=== PATIENT | female | born 1955 | race Two or more races ===

== ENCOUNTER 2018-09-08 13:03 | Inpatient (IN) | payer OTHER ==
[2018-09-08 15:59] VITALS: BMI 28.0
--- NOTE | 2018-09-08 16:43 | HP ---
COWS - Scale Resting Pulse: 1= [place] 81-100 Sweatin= Chills/Flushing Restless Observation: 1= Difficult to Sit Still Pupil Size: 1= Pupils >than Normal Bone or Joint Aches: 2= Severe Diffuse Aches Runny Nose/ Eye Tearin= Constantly Teary/Runny GI Upset > 30mins: 1= Stomach Cramp Tremor Observation: 0= None Yawning Observation: 0= None Anxiety or Irritability: 2=Irritable/Anxious Goose Flesh Skin: 0=Smooth Skin COWS Score: 13 CIWA Score Nausea/Vomitin-No Nausea/No Vomiting Muscle Tremors: 2 Anxiety: 2 Agitation: 0-Normal Activity Paroxysmal Sweats: 2 Orientation: 0-Oriented Tacttile Disturbances: 2-Mild Itch/Numbness/Burn Auditory Disturbances: 0-None Visual Disturbances: 1-Very Mild Sensitivity Headache: 3-Moderate CIWA-Ar Total Score: 12 - Admission Criteria OAS Guidelines: Admission for Medically Managed Detox: Requires at least one of the followin. CIWA greater than 12 2. Seizures within the past 24 hours 3. Delirium tremens within the past 24 hours 4. Hallucinations within the past 24 hours 5. Acute intervention needed for co occurring medical disorder 6. Acute intervention needed for co occurring psychiatric disorder 7. Severe withdrawal that cannot be handled at a lower level of care (continued vomiting, continued diarrhea, abnormal vital signs) requiring intravenous medication and/or fluids 8. Patient presents the following: CIWA greater than 12 Admission Criteria Met: Admission criteria met Admission ROS [facility] Chief Complaint: " I want to live and go back to [place]" alcohol and heroin withdrawal symptoms Allergies/Adverse Reactions: Allergies Allergy/AdvReac Type Severity Reaction Status Date / Time chlordiazepoxide HCl Allergy Severe Vomiting Verified 09/08/18 15:48 [From Librium] Latex, Natural Rubber Allergy Intermediate Itching Verified 09/08/18 15:48 History of Present Illness: 63 yo female with hx of heroin and alcohol dependence is here seeking inpatient detox. Records five years of sobriety relapsed in the past six months. PMHX: HTN, Hypothyroid Psych: denies Denies SI/ HI denies hx of suicide attempt Denies hx of seizures, blackouts or overdose Exam Limitations: No Limitations - Ebola screening Have you traveled outside of the country in the last 21 days: No Have you had contact with anyone from an Ebola affected area: No - Review of Systems Constitutional: Chills, Loss of Appetite, Changes in sleep, Unintentional Wgt. Loss (20 lbs in past six months) EENT: reports: Nose Congestion Respiratory: reports: No Symptoms reported Cardiac: reports: Palpitations GI: reports: Constipated (last bm today) : reports: No Symptoms Reported Musculoskeletal: reports: Back Pain, Joint Pain Integumentary: reports: No Symptoms Reported Neuro: reports: Numbness, Weakness Endocrine: reports: Increased Thirst Hematology: reports: No Symptoms Reported Psychiatric: reports: Orientated x3, Anxious Other Systems: Reviewed and Negative Patient History - Patient Medical History Hx Anemia: No Hx Asthma: No Hx Chronic Obstructive Pulmonary Disease (COPD): No Hx Cancer: No Hx Cardiac Disorders: No Hx Congestive Heart Failure: No Hx Hypertension: Yes (on med) Hx Hypercholesterolemia: No Hx Pacemaker: No HX Cerebrovascular Accident: No Hx Seizures: No Hx Dementia: No Hx Diabetes: No Hx Gastrointestinal Disorders: Yes (GERD) Hx Liver Disease: No Hx Genitourinary Disorders: No Hx Sexually Transmitted Disorders: No Hx Renal Disease (ESRD): No Hx Thyroid Disease: Yes (hypothyroidism) Hx Human Immunodeficiency Virus (HIV): No (05/02 LAST TESTED) Hx Hepatitis C: Yes Hx Depression: Yes (abilify) Hx Suicide Attempt: No Hx Bipolar Disorder: No Hx Schizophrenia: No - Patient Surgical History Past Surgical History: No Hx Neurologic Surgery: No Hx Cataract Extraction: No Hx Cardiac Surgery: No Hx Lung Surgery: No Hx Breast Surgery: No Hx Breast Biopsy: No Hx Abdominal Surgery: No Hx Appendectomy: No Hx Cholecystectomy: No Hx Genitourinary Surgery: No Hx Section: No Hx Orthopedic Surgery: No Anesthesia Reaction: No - PPD History Previous Implant?: No Date: 07/29/13 Results: 0MM PPD to be Administered?: Yes - Smoking Cessation Smoking history: Current every day smoker Have you smoked in the past 12 months: Yes Aproximately how many cigarettes per day: 20 Cigars Per Day: 0 Hx Chewing Tobacco Use: No Initiated information on smoking cessation: Yes 'Breaking Loose' booklet given: 09/08/18 - Substance & Tx. History Hx Alcohol Use: Yes Hx Substance Use: Yes Substance Use Type: Heroin Hx Substance Use Treatment: Yes - Substances abused Heroin Substance route: Inhalation Frequency: Daily Amount used: 4 bags/day Age of first use: 13 Date of last use: 09/08/18 Family Disease History - Family Disease History Family History: Denies Admission Physical Exam [facility] - Vital Signs Vital Signs: Vital Signs - 24 hr 09/08/18 15:46 Pulse Rate 68 Respiratory 18 Rate Blood Pressure 143/85 - Physical General Appearance: Yes: Appropriately Dressed, Mild Distress, Sweating, Anxious HEENTM: Yes: EOMI, Hearing grossly Normal, Normal ENT Inspection, Normocephalic , Normal Voice, IAN, Pharynx Normal, Tm's normal Respiratory: Yes: Chest Non-Tender, Lungs Clear, Normal Breath Sounds, No Respiratory Distress, No Accessory Muscle Use Neck: Yes: Within Normal Limits Breast: Yes: Breast Exam Deferred Cardiology: Yes: Regular Rhythm, Regular Rate Abdominal: Yes: Normal Bowel Sounds, Non Tender, Flat, Soft Genitourinary: Yes: Within Normal Limits Back: Yes: Normal Inspection Musculoskeletal: Yes: full range of Motion, Gait Steady, Pelvis Stable Extremities: Yes: Normal Capillary Refill, Normal Inspection, Normal Range of Motion, Non-Tender Neurological: Yes: hair preparer II-XII NML intact, Fully Oriented, Alert, Motor Strength 5/5, Normal Response, Depressed Affect Integumentary: Yes: Normal Color, Dry, Warm Lymphatic: Yes: Within Normal Limits - Diagnostic (1) Essential hypertension Current Visit: Yes Status: Acute (2) Gastroesophageal reflux disease Current Visit: Yes Status: Chronic Qualifiers: Esophagitis presence: without esophagitis Qualified Code(s): K21.9 - Gastro -esophageal reflux disease without esophagitis (3) Nicotine dependence Current Visit: Yes Status: Chronic Qualifiers: Nicotine product type: cigarettes Cleared for Admission [facility] - Detox or Rehab [facility] Level of Care: Medically Managed Detox Regimen/Protocol: Methadone Breathalyzer - Breathalyzer Breathalyzer: 0 Urine Drug Screen - Test Device Lot number: [id number] Expiration date: 05/19/20 - Control Is test valid?: Yes - Results Urine drug screen results: FEN-Fentanyl, MOP-Opiates, OXY-Oxycodone, MTD- Methadone Inpatient Rehab Admission - Rehab Decision to Admit Inpatient rehab admission?: No
[2018-09-08] MEDS ORDERED: MAGNESIUM CITRATE 300 ML BOTTLE PO PRN (16:56)
[2018-09-08] MEDS ORDERED: ACETAMINOPHEN 325 MG TABLET (FP) PO PRN ×2 (16:56)
[2018-09-08] MEDS ORDERED: MAGNESIUM HYDROX 2400MG/30ML ORAL SUSPENSION 30 ML CUP PO PRN (16:56)
[2018-09-08] MEDS ORDERED: MELATONIN 5 MG TABLETS PO PRN (16:56)
[2018-09-08] MEDS ORDERED: MAG HYDROX/AL HYDROX/SIMETH 30 ML UNIT-DOSE CUP PO PRN (16:56)
[2018-09-08] MEDS ORDERED: BISMUTH SUBSALICYLATE 524 MG/30 ML UD PO PRN (16:56)
[2018-09-08] MEDS ORDERED: MENTHOL/PHENOL 1 EACH UD MM PRN (16:56)
[2018-09-08] MEDS ORDERED: cloNIDine HCL 0.1 MG TABLET PO PRN (17:11)
[2018-09-08] MEDS ORDERED: METHADONE HCL 10 MG TABLET (FOR DETOX USE ONLY) PO ONE ×2 (18:30→23:00)
[2018-09-08] MEDS: NICOTINE POLACRILEX 2 MG GUM BUC PRN ×2 (19:01→21:00)
[2018-09-08] MEDS: METHOCARBAMOL 500 MG TABLET PO PRN (21:50)
[2018-09-08] MEDS: THIAMINE HCL 100 MG TABLET (FP) PO SCH (21:52)
[2018-09-08] MEDS: MINERAL OIL/PETROLAT/WATER TOPICAL CREAM 113 GM JAR TP SCH (21:57)
[2018-09-09] MEDS: LEVOTHYROXINE NA 25 MCG TABLET (FP) PO SCH (06:35)
[2018-09-09] MEDS ORDERED: METHADONE HCL 10 MG TABLET (FOR DETOX USE ONLY) PO ONE (10:00)
[2018-09-09 10:10] LABS: ALBUMIN 3.4 g/dl (3.4-5.0); BILIRUBIN,TOTAL 0.3 mg/dL (0.2-1); CALCIUM 9.1 mg/dL (8.5-10.1); CREATININE 0.9 mg/dL (0.55-1.3); POTASSIUM 4.1 mmol/L (3.5-5.1); TOT PROT 7.9 g/dl (6.4-8.2)
[2018-09-09 10:21] LABS: HEMATOCRIT 34.9 % (32.4-45.2); HEMOGLOBIN 11.7 GM/dL (10.7-15.3); MCH 33.9 pg (25.7-33.7); MCHC 33.5 g/dl (32.0-36.0); MEAN CELL VOLUME 101.3 fl (80-96); MEAN PLT VOLUME 9.2 fl (7.5-11.1); PLATELET COUNT 194 K/MM3 (134-434); RBC 3.44 M/mm3 (3.60-5.2); RDW 12.7 % (11.6-15.6); WHITE BLOOD COUNT 4.5 K/mm3 (4.0-10.0)
[2018-09-09] MEDS: HYDROCHLOROTHIAZIDE 25 MG TABLET (FP) PO SCH (10:29)
[2018-09-09] MEDS: MINERAL OIL/PETROLAT/WATER TOPICAL CREAM 113 GM JAR TP SCH ×2 (10:30→22:09)
[2018-09-09] MEDS: PRENATAL VITAMINS W/ FOLIC ACID TABLET (FP) PO SCH (10:30)
[2018-09-09] MEDS: NICOTINE 14 MG/24 HOURS TOPICAL PATCH TD SCH (10:32)
[2018-09-09] MEDS: diazePAM 5 MG TABLET PO PRN ×3 (11:23→22:07)
--- NOTE | 2018-09-09 13:24 | EKG ---
Test Reason : Blood Pressure : / mmHG Vent. Rate : 063 BPM Atrial Rate : 063 BPM P-R Int : 166 ms QRS Dur : 078 ms QT Int : 428 ms P-R-T Axes : 076 025 034 degrees QTc Int : 437 ms NORMAL SINUS RHYTHM NORMAL ECG NO PREVIOUS ECGS AVAILABLE Confirmed by NAYELY NICHOLS MD ([id number]) on 09/09/2018 1:24:13 PM Referred By: Confirmed By:NAYELY NICHOLS MD
--- NOTE | 2018-09-09 13:31 | PN ---
[facility] CIWA - CIWA Score Nausea/Vomitin-No Nausea/No Vomiting Muscle Tremors: 3 Anxiety: 3 Agitation: 3 Paroxysmal Sweats: 3 Orientation: 0-Oriented Tacttile Disturbances: 0-None Auditory Disturbances: 0-None Visual Disturbances: 0-None Headache: 0-None Present CIWA-Ar Total Score: 12 BHS COWS - Scale Resting Pulse: 0= [place] 80 or Below Sweatin=Flushed/Facial Moisture Restless Observation: 1= Difficult to Sit Still Pupil Size: 0= Normal to Room Light Bone or Joint Aches: 2= Severe Diffuse Aches Runny Nose/ Eye Tearin= Runny Nose/Eyes GI Upset > 30mins: 0= None Tremor Observation of Outstretched Hands: 1= Tremor Mentor, Not Seen Yawning Observation: 2= >3x During Session Anxiety or Irritability: 2=Irritable/Anxious Goose Flesh Skin: 0=Smooth Skin COWS Score: 12 S Progress Note (SOAP) Subjective: sweats shakes interrupted sleep body aches nasal congestion anxiety nicotine patch Objective: 09/09/18 13:26 Vital Signs Temperature 98.6 F 09/09/18 09:37 Pulse Rate 62 09/09/18 09:37 Respiratory Rate 18 09/09/18 09:37 Blood Pressure 132/66 09/09/18 09:37 O2 Sat by Pulse Oximetry (%) Laboratory Tests 09/08/18 09/09/18 09/09/18 18:34 07:40 07:40 WBC 4.5 RBC 3.44 L Hgb 11.7 Hct 34.9 D MCV 101.3 H MCH 33.9 H MCHC 33.5 RDW 12.7 Plt Count 194 D MPV 9.2 D Sodium 139 Potassium 4.1 Chloride 106 Carbon Dioxide 28 Anion Gap 6 L BUN 11 Creatinine 0.9 Est GFR (CKD-EPI)AfAm 77.77 Est GFR (CKD-EPI)NonAf 67.10 Random Glucose 106 Calcium 9.1 Total Bilirubin 0.3 AST 16 ALT 22 Alkaline Phosphatase 79 Total Protein 7.9 Albumin 3.4 POC Urine HCG, Qual Negative labs noted aaox3 ambulating no acute distress Assessment: 09/09/18 13:31 withdrawal sx Plan: continue detox increase fluids valium prn
--- NOTE | 2018-09-09 13:35 | PN ---
S Progress Note Note: pt states she is not allergic or no reaction to librium. pt does not know why it was placed in her profile as an allergic reaction. allergy/adv was updated. valium was ordered prn for her anxiety.
[2018-09-09] MEDS: IBUPROFEN 400 MG TABLET (FP) PO PRN (19:07)
[2018-09-09] MEDS: THIAMINE HCL 100 MG TABLET (FP) PO SCH (22:07)
[2018-09-10] MEDS: diazePAM 5 MG TABLET PO PRN ×4 (05:07→22:19)
[2018-09-10] MEDS: IBUPROFEN 400 MG TABLET (FP) PO PRN ×2 (05:07→20:09)
[2018-09-10] MEDS: LEVOTHYROXINE NA 25 MCG TABLET (FP) PO SCH (07:55)
--- NOTE | 2018-09-10 09:58 | PN ---
S CIWA - CIWA Score Nausea/Vomitin-No Nausea/No Vomiting Muscle Tremors: 2 Anxiety: 2 Agitation: 1-Slight > Activity Paroxysmal Sweats: 2 Orientation: 0-Oriented Tacttile Disturbances: 2-Mild Itch/Numbness/Burn Auditory Disturbances: 0-None Visual Disturbances: 0-None Headache: 2-Mild CIWA-Ar Total Score: 11 BHS COWS - Scale Resting Pulse: 0= [place] 80 or Below Sweatin= Chills/Flushing Restless Observation: 1= Difficult to Sit Still Pupil Size: 0= Normal to Room Light Bone or Joint Aches: 2= Severe Diffuse Aches Runny Nose/ Eye Tearin= None GI Upset > 30mins: 0= None Tremor Observation of Outstretched Hands: 2= Slight Tremor Visible Yawning Observation: 2= >3x During Session Anxiety or Irritability: 2=Irritable/Anxious Goose Flesh Skin: 0=Smooth Skin COWS Score: 10 S Progress Note (SOAP) Subjective: c/o irritability, sweats, b/l LE numbness, mild headache, and tremor. Objective: 09/10/18 09:54 Vital Signs 09/10/18 09/10/18 03:30 08:10 Temperature 98.2 F Pulse Rate 57 L Respiratory 18 18 Rate Blood Pressure 149/63 Lab Results WBC 4.5 K/mm3 (4.0-10.0) 09/09/18 07:40 RBC 3.44 M/mm3 (3.60-5.2) L 09/09/18 07:40 Hgb 11.7 GM/dL (10.7-15.3) 09/09/18 07:40 Hct 34.9 % (32.4-45.2) D 09/09/18 07:40 MCV 101.3 fl (80-96) H 09/09/18 07:40 MCHC 33.5 g/dl (32.0-36.0) 09/09/18 07:40 RDW 12.7 % (11.6-15.6) 09/09/18 07:40 Plt Count 194 K/MM3 (134-434) D 09/09/18 07:40 Sodium 139 mmol/L (136-145) 09/09/18 07:40 Potassium 4.1 mmol/L (3.5-5.1) 09/09/18 07:40 Chloride 106 mmol/L (98-107) 09/09/18 07:40 Carbon Dioxide 28 mmol/L (21-32) 09/09/18 07:40 Anion Gap 6 MMOL/L (8-16) L 09/09/18 07:40 BUN 11 mg/dL (7-18) 09/09/18 07:40 Creatinine 0.9 mg/dL (0.55-1.3) 09/09/18 07:40 Random Glucose 106 mg/dL (74-106) 09/09/18 07:40 Calcium 9.1 mg/dL (8.5-10.1) 09/09/18 07:40 Labs noted. Assessment: 09/10/18 09:55 AOX3, in no acute distress full rom, ambulating in the unit withdrawal symptoms. Plan: continue detox increase fluids
[2018-09-10] MEDS ORDERED: METHADONE HCL 10 MG TABLET (FOR DETOX USE ONLY) PO ONE (10:00)
[2018-09-10] MEDS: HYDROCHLOROTHIAZIDE 25 MG TABLET (FP) PO SCH (10:19)
[2018-09-10] MEDS: PRENATAL VITAMINS W/ FOLIC ACID TABLET (FP) PO SCH (10:19)
[2018-09-10] MEDS: MINERAL OIL/PETROLAT/WATER TOPICAL CREAM 113 GM JAR TP SCH ×2 (10:19→22:16)
[2018-09-10] MEDS: NICOTINE 14 MG/24 HOURS TOPICAL PATCH TD SCH (10:20)
[2018-09-10] MEDS: METHOCARBAMOL 500 MG TABLET PO PRN (10:21)
[2018-09-10] MEDS: THIAMINE HCL 100 MG TABLET (FP) PO SCH (22:17)
[2018-09-11] MEDS: LEVOTHYROXINE NA 25 MCG TABLET (FP) PO SCH (06:00)
[2018-09-11] MEDS ORDERED: METHADONE HCL 10 MG TABLET (FOR DETOX USE ONLY) PO ONE (10:00)
[2018-09-11] MEDS ORDERED: P-EPHED 60MG/TRIPROLIDI 2.5MG TABLET PO PRN (10:09)
[2018-09-11] MEDS: PRENATAL VITAMINS W/ FOLIC ACID TABLET (FP) PO SCH (10:19)
[2018-09-11] MEDS: diazePAM 5 MG TABLET PO PRN ×3 (10:20→22:20)
[2018-09-11] MEDS: HYDROCHLOROTHIAZIDE 25 MG TABLET (FP) PO SCH (10:20)
[2018-09-11] MEDS: MINERAL OIL/PETROLAT/WATER TOPICAL CREAM 113 GM JAR TP SCH ×2 (10:20→22:18)
[2018-09-11] MEDS: NICOTINE 14 MG/24 HOURS TOPICAL PATCH TD SCH (10:20)
--- NOTE | 2018-09-11 12:45 | PN ---
BHS COWS - Scale Resting Pulse: 0= [place] 80 or Below Sweatin= Chills/Flushing Restless Observation: 1= Difficult to Sit Still Pupil Size: 0= Normal to Room Light Bone or Joint Aches: 1= Mild Discomfort Runny Nose/ Eye Tearin= Nasal Congestion GI Upset > 30mins: 1= Stomach Cramp Tremor Observation of Outstretched Hands: 2= Slight Tremor Visible Yawning Observation: 0= None Anxiety or Irritability: 2=Irritable/Anxious Goose Flesh Skin: 0=Smooth Skin COWS Score: 9 BHS Progress Note (SOAP) Subjective: Sweating, tremor, chills, anxious; c/o nasal congestion (Actifed prn ordered) Objective: 09/11/18 12:44 Last Vital Signs Temp Pulse Resp BP Pulse Ox 98.4 F 71 18 136/74 09/11/18 09:22 09/11/18 09:22 09/11/18 09:22 09/11/18 09:22 Laboratory Tests 09/08/18 09/09/18 09/09/18 18:34 07:40 07:40 WBC 4.5 RBC 3.44 L Hgb 11.7 Hct 34.9 D MCV 101.3 H MCH 33.9 H MCHC 33.5 RDW 12.7 Plt Count 194 D MPV 9.2 D Sodium 139 Potassium 4.1 Chloride 106 Carbon Dioxide 28 Anion Gap 6 L BUN 11 Creatinine 0.9 Est GFR (CKD-EPI)AfAm 77.77 Est GFR (CKD-EPI)NonAf 67.10 Random Glucose 106 Calcium 9.1 Total Bilirubin 0.3 AST 16 ALT 22 Alkaline Phosphatase 79 Total Protein 7.9 Albumin 3.4 POC Urine HCG, Qual Negative RPR Titer HIV 1&2 Antibody Screen HIV P24 Antigen 09/09/18 09/09/18 07:40 07:40 WBC RBC Hgb Hct MCV MCH MCHC RDW Plt Count MPV Sodium Potassium Chloride Carbon Dioxide Anion Gap BUN Creatinine Est GFR (CKD-EPI)AfAm Est GFR (CKD-EPI)NonAf Random Glucose Calcium Total Bilirubin AST ALT Alkaline Phosphatase Total Protein Albumin POC Urine HCG, Qual RPR Titer Nonreactive HIV 1&2 Antibody Screen Negative HIV P24 Antigen Negative Labs reviewed Assessment: 09/11/18 12:44 Withdrawal symptoms Plan: Continue detox Encouraged PO water intake
[2018-09-11] MEDS: NICOTINE POLACRILEX 2 MG GUM BUC PRN ×2 (17:20→22:21)
[2018-09-11] MEDS: THIAMINE HCL 100 MG TABLET (FP) PO SCH (22:18)
[2018-09-12] MEDS ORDERED: METHADONE HCL 5 MG TABLET (FOR DETOX USE ONLY) PO ONE (06:00)
[2018-09-12] MEDS: LEVOTHYROXINE NA 25 MCG TABLET (FP) PO SCH (06:01)
[2018-09-12] MEDS: diazePAM 5 MG TABLET PO PRN (06:04)
[2018-09-12 07:26] VITALS: BP 121/78; PULSE 68; TEMP 97.9
--- NOTE | 2018-09-12 09:27 | DS ---
[facility] Detox Discharge Summary Admission Date: 09/08/18 Discharge Date: 09/12/18 - History Present History: Alcohol Dependence, Opioid Dependence - Physical Exam Results Vital Signs: Vital Signs Temperature 97.9 F 09/12/18 07:25 Pulse Rate 68 09/12/18 07:25 Respiratory Rate 16 09/12/18 07:25 Blood Pressure 121/78 09/12/18 07:25 O2 Sat by Pulse Oximetry (%) - Treatment Hospital Course: Detox Protocol Followed, Detoxed Safely, Responded well, Discharged Condition Good, Rehab Referral Accepted - Medication Discharge Medications: Ambulatory Orders Levothyroxine [Synthroid -] 50 mcg PO DAILY #30 tablet 04/10/14 Hydrochlorothiazide [Hctz -] 25 mg PO DAILY 09/08/18 - AMA Did Patient Leave Against Medical Advice: No (going home. referral to outpatient rehab)
[2018-09-12] MEDS: HYDROCHLOROTHIAZIDE 25 MG TABLET (FP) PO SCH (09:42)
[2018-09-12] MEDS: PRENATAL VITAMINS W/ FOLIC ACID TABLET (FP) PO SCH (09:42)
[2018-09-12] MEDS: NICOTINE 14 MG/24 HOURS TOPICAL PATCH TD SCH (09:43)
== END 2018-09-12 09:47 | disposition home or self-care (01) | DRG 897 ==
LOC: YASAS 13:03 → Y6N 18:07
PROVIDERS: ADMIT Surgery; ATTEND Surgery
PROC: HZ2ZZZZ Detoxification Services for Substance Abuse Treatment (ICD-10-PCS; principal; 2018-09-08)
DX: F11.23 Opioid dependence with withdrawal (principal); F10.230 Alcohol dependence with withdrawal, uncomplicated; F17.210 Nicotine dependence, cigarettes, uncomplicated; F32.9 Major depressive disorder, single episode, unspecified; I10 Essential (primary) hypertension; E03.9 Hypothyroidism, unspecified; K21.9 Gastro-esophageal reflux disease without esophagitis; B18.2 Chronic viral hepatitis C
CPT/HCPCS: 36415; 80053; 81025; 85027; 86593; 87389; 93005; 93010; J0735

== ENCOUNTER 2020-03-22 12:10 | Observation (INO) | payer OTHER ==
[2020-03-22 12:30] VITALS: BMI 34.7
[2020-03-22] MEDS ORDERED: ACETAMINOPHEN 325 MG TABLET (FP) PO ONE (12:37)
[2020-03-22] MEDS ORDERED: ACETAMINOPHEN 325 MG TABLET (FP) ONE (14:32)
[2020-03-22 14:44] LABS: BASO % 1.6 % (0-2.0); EOS % 1.4 % (0-4.5); HEMOGLOBIN 13.8 GM/dL (10.7-15.3); LYMPH % 43.8 % (8-40); MCH 33.8 pg (25.7-33.7); MCHC 33.6 g/dl (32.0-36.0); MEAN CELL VOLUME 100.6 fl (80-96); MONO % 11.4 % (3.8-10.2); NEUT % 41.8 % (42.8-82.8); PLATELET COUNT 241 K/MM3 (134-434); RBC 4.07 M/mm3 (3.60-5.2); WHITE BLOOD COUNT 6.7 K/mm3 (4.0-10.0)
[2020-03-22 15:04] LABS: CHLORIDE 99 mmol/L (98-107); POTASSIUM 4.1 mmol/L (3.5-5.1); SODIUM 137 mmol/L (136-145)
[2020-03-22 15:05] LABS: ANION GAP 5 MMOL/L (8-16); BLOOD UREA NITROGEN 12.9 mg/dL (7-18); CALCIUM 10.2 mg/dL (8.5-10.1); CO2 33 mmol/L (21-32)
[2020-03-22 15:06] LABS: GLUCOSE,RANDOM 79 mg/dL (74-106)
[2020-03-22 15:10] LABS: SGOT/AST 41 U/L (15-37); SGPT/ALT 50 U/L (13-61)
[2020-03-22 15:11] LABS: BILIRUBIN,TOTAL 0.7 mg/dL (0.2-1)
[2020-03-22 15:12] LABS: TOT PROT 9.4 g/dl (6.4-8.2)
[2020-03-22 15:13] LABS: ALK PHOS 70 U/L (45-117)
[2020-03-22] MEDS ORDERED: IBUPROFEN 600 MG TABLET (FP) PO ONE ×2 (15:42→15:55)
[2020-03-22] MEDS ORDERED: ASPIRIN 325 MG ENTERIC COATED TABLET (FP) PO ONE (18:08)
[2020-03-22] MEDS ORDERED: ASPIRIN 325 MG ENTERIC COATED TABLET (FP) ONE (20:19)
[2020-03-23] MEDS ORDERED: LEVOTHYROXINE NA 100 MCG TABLET (FP) PO SCH (07:00)
[2020-03-23] MEDS: NICOTINE 14 MG/24 HOURS TOPICAL PATCH TD SCH ×2 (07:19→09:19)
[2020-03-23 07:34] LABS: HEMATOCRIT 40.2 % (32.4-45.2); HEMOGLOBIN 13.5 GM/dL (10.7-15.3); MCH 33.4 pg (25.7-33.7); MCHC 33.5 g/dl (32.0-36.0); MEAN CELL VOLUME 99.8 fl (80-96); MEAN PLT VOLUME 9.2 fl (7.5-11.1); PLATELET COUNT 231 K/MM3 (134-434); RBC 4.03 M/mm3 (3.60-5.2); RDW 12.9 % (11.6-15.6); WHITE BLOOD COUNT 5.2 K/mm3 (4.0-10.0)
[2020-03-23 07:46] LABS: POTASSIUM 3.8 mmol/L (3.5-5.1)
[2020-03-23 07:57] LABS: ALBUMIN 3.7 g/dl (3.4-5.0); BLOOD UREA NITROGEN 13.1 mg/dL (7-18); CALCIUM 9.4 mg/dL (8.5-10.1)
[2020-03-23 08:02] LABS: BILIRUBIN,TOTAL 0.6 mg/dL (0.2-1); CHOLESTEROL 190 mg/dL (50-200); CREATININE 0.9 mg/dL (0.55-1.3); TRIGLYCERIDES 172 mg/dL (0-150)
[2020-03-23 08:03] LABS: LDL CHOLESTEROL (ONLY SJRH) 140 mg/dL (5-100); PHOSPHOROUS 3.9 mg/dL (2.5-4.9)
[2020-03-23 08:04] LABS: TOT PROT 8.9 g/dl (6.4-8.2)
[2020-03-23 08:05] LABS: HDL CHOLESTEROL 38 mg/dL (40-60)
[2020-03-23] MEDS ORDERED: METHADONE HCL 10 MG TABLET PO ONE (10:00)
[2020-03-23] MEDS ORDERED: HYDROCHLOROTHIAZIDE 25 MG TABLET (FP) PO SCH (10:00)
[2020-03-23] MEDS ORDERED: ENOXAPARIN NA (PORCINE) 40 MG/0.4 ML DISP.SYRIN SQ SCH (10:00)
[2020-03-23] MEDS ORDERED: ASPIRIN 81 MG CHEWABLE TABLETS PO SCH (10:00)
[2020-03-23 12:56] VITALS: BP 137/88; PULSE 66; TEMP 98.2
[2020-03-24] MEDS ORDERED: METHADONE HCL 5 MG TABLET PO ONE (10:00)
[2020-03-25 21:06] LABS: HEP B CORE AB, TOT Positive (Negative)
== END 2020-03-23 12:15 | disposition left against medical advice (07) ==
LOC: JER 12:10 → JERBED 16:30 → J4W 20:29
PROC: 3E023GC Introduction of Other Therapeutic Substance into Muscle, Percutaneous Approach (ICD-10-PCS; principal; 2020-03-22)
DX: I25.119 Atherosclerotic heart disease of native coronary artery with unspecified angina pectoris (principal); I11.0 Hypertensive heart disease with heart failure; R07.89 Other chest pain; F11.90 Opioid use, unspecified, uncomplicated; E03.9 Hypothyroidism, unspecified; Z86.19 Personal history of other infectious and parasitic diseases; K21.9 Gastro-esophageal reflux disease without esophagitis; F32.9 Major depressive disorder, single episode, unspecified; I50.30 Unspecified diastolic (congestive) heart failure; Z91.040 Latex allergy status; E66.9 Obesity, unspecified; Z68.34 Body mass index [BMI] 34.0-34.9, adult; F17.210 Nicotine dependence, cigarettes, uncomplicated; Z29.9 Encounter for prophylactic measures, unspecified
CPT/HCPCS: 36415; 71045-TC-FY; 80053; 80061; 82550; 82553; 82607; 82746; 83721; 83735; 84100; 84439; 84443; 84484; 85025; 85027; 86704; 86706; 86707; 86708; 86709; 86803; 87340; 93005; 93010; 93971-TC; 96372; 99285-25; C9803; G0378; U0003